=== PATIENT | male | born 1995 | race Asian ===

== ENCOUNTER 2021-03-10 07:52 | Emergency (ER) | payer OTHER ==
[~2021-03-10] VITALS: Ht 180.3 cm; Wt 65.8 kg
[2021-03-10 07:52] VITALS: TEMP 98.8
[2021-03-10 17:02] VITALS: BP 95/55
== END 2021-03-10 17:02 | disposition home or self-care (01) ==
LOC: ED 07:52
DX: M25.552 Pain in left hip (principal); X58.XXXA Exposure to other specified factors, initial encounter; Y93.72 Activity, wrestling; Y92.89 Other specified places as the place of occurrence of the external cause
CPT/HCPCS: 80307; 96372; 99283; J1885

== ENCOUNTER 2022-11-24 19:57 | Emergency (ER) | payer OTHER ==
[~2022-11-24] VITALS: Ht 180.3 cm; Wt 66.2 kg
[2022-11-24 20:13] VITALS: BP 125/83; TEMP 97.3
[2022-11-24 21:47] LABS: PLATELET COUNT 290 K/uL (142-355)
[2022-11-24 22:04] LABS: POTASSIUM 4.2 mmol/L (3.6-5.2)
== END 2022-11-25 01:10 | disposition home or self-care (01) ==
LOC: ED 19:57
PROVIDERS: Emergency Medicine
DX: R10.9 Unspecified abdominal pain (principal); F17.210 Nicotine dependence, cigarettes, uncomplicated
CPT/HCPCS: 36415; 80053; 81002; 82150; 83690; 85027; 99283; Q9963

== ENCOUNTER 2023-01-08 08:25 | Emergency (ER) | payer OTHER ==
[~2023-01-08] VITALS: Ht 180.3 cm; Wt 68.0 kg
[2023-01-08 08:30] VITALS: TEMP 97.6
[2023-01-08 10:05] VITALS: BP 110/52
== END 2023-01-08 10:05 | disposition home or self-care (01) ==
LOC: ED 08:25
DX: S91.331A Puncture wound without foreign body, right foot, initial encounter (principal); W22.8XXA Striking against or struck by other objects, initial encounter
CPT/HCPCS: 99283